=== PATIENT | male | born 1990 | race Caucasian/White ===

== ENCOUNTER 2018-04-07 12:46 | Emergency (ER) | payer SELFPAY ==
[~2018-04-07] VITALS: Ht 167.6 cm; Wt 58.8 kg
[2018-04-07 12:50] VITALS: RESP 20; Ht 167.6 cm; Wt 58.8 kg
[2018-04-07] MEDS ORDERED: KETOROLAC 30 MG INJ IM STA (14:55)
[2018-04-07] MEDS ORDERED: TYL500 PO (15:18)
[2018-04-07] MEDS ORDERED: FIORICET PO (15:18)
[2018-04-07] MEDS ORDERED: IBUP-1542 PO (15:18)
--- NOTE | 2018-04-07 15:19 | ERD ---
ER Documentation Chief Complaint Chief Complaint wheezing w/headache x 2wks ROS All systems reviewed and are negative except as per history of present illness. Medications Home Meds Active Scripts Acetamin/Butalbital/Caffeine* (Fioricet*) [id number] Tab, 1 TAB PO Q4H PRN for PAIN LEVEL 1-5, #30 TAB Prov:RUSTY SCHULER DO 04/07/18 Acetaminophen* (Tylenol*) 500 Mg Tab, 500 MG PO Q4H PRN for MILD PAIN LEVEL 1-3, #30 TAB Prov:RUSTY SCHULER DO 04/07/18 Ibuprofen* (Motrin*) 600 Mg Tab, 600 MG PO Q6H PRN for PAIN AND OR ELEVATED TEMP, #30 TAB Prov:RUSTY SCHULER DO 04/07/18 Allergies Allergies: Coded Allergies: No Known Allergy (Unverified , 04/07/18) Physical Exam Vitals Vital Signs Date Temp Pulse Resp B/P (MAP) Pulse Ox O2 O2 Flow FiO2 Time Delivery Rate 04/07/18 97.5 57 20 119/72 99 12:50 (88) Physical Exam Const: No acute distress Head: Atraumatic Eyes: Normal Conjunctiva ENT: Normal External Ears, Nose and Mouth. Neck: Full range of motion. No meningismus. Resp: Clear to auscultation bilaterally Cardio: Regular rate and rhythm, no murmurs Abd: Soft, non tender, non distended. Normal bowel sounds Skin: No petechiae or rashes Back: No midline or flank tenderness Ext: No cyanosis, or edema Neur: Awake and alert Psych: Normal Mood and Affect Results 24 hrs Current Medications Medications Dose Sig/Golden Start Time Status Last (Trade) Ordered Route PRN Stop Time Admin Dose Reason Admin Ketorolac 30 mg ONCE STAT 04/07/18 DC 04/07/18 Tromethamine IM 14:55 15:05 (Toradol) 04/07/18 14:56 Departure Diagnosis: Primary Impression: Headache Headache type: unspecified Headache chronicity pattern: unspecified pattern Intractability: not intractable Qualified Codes: R51 - Headache Additional Impression: Asthma Condition: Fair Patient Instructions: Self-Care for Headaches, Asthma Referrals: COMMUNITY CLINICS YOU HAVE RECEIVED A MEDICAL SCREENING EXAM AND THE RESULTS INDICATE THAT YOU DO NOT HAVE A CONDITION THAT REQUIRES URGENT TREATMENT IN THE EMERGENCY DEPARTMENT. FURTHER EVALUATION AND TREATMENT OF YOUR CONDITION CAN WAIT UNTIL YOU ARE SEEN IN YOUR DOCTORS OFFICE WITHIN THE NEXT 1-2 DAYS. IT IS YOUR RESPONSIBILITY TO MAKE AN APPOINTMENT FOR FOLOW-UP CARE. IF YOU HAVE A PRIMARY DOCTOR --you should call your primary doctor and schedule an appointment IF YOU DO NOT HAVE A PRIMARY DOCTOR YOU CAN CALL OUR PHYSICIAN REFERRAL HOTLINE AT IF YOU CAN NOT AFFORD TO SEE A PHYSICIAN YOU CAN CHOSE FROM THE FOLLOWING [facility] CLINICS [facility] [address] [facility] [address] [facility] [facility] [address] [facility] [address] [facility] [address] [facility]. [facility]. [address] Additional Instructions: Call your primary care doctor TOMORROW for an appointment during the next 1-2 days.See the doctor sooner or return here if your condition worsens before your appointment time. RUSTY SCHULER DO Apr 07, 2018 15:19
[2018-04-07 15:58] VITALS: BP 112/72; PULSE 57
[2018-04-07] MEDS ORDERED: ALBU8.5H8 INH (16:21)
== END 2018-04-07 16:00 | disposition home or self-care (01) ==
LOC: FTE 12:46
DX: R51 Headache (principal); J45.901 Unspecified asthma with (acute) exacerbation
CPT/HCPCS: 96372; 99284; J1885